=== PATIENT | male | born 1965 | race Caucasian/White ===

== ENCOUNTER 2024-03-04 11:21 | Emergency (ER) | payer BC ==
--- NOTE | 2024-03-04 12:49 | ED ---
"General Adult HPI - General Chief complaint: Extremity Injury, Upper Stated complaint: R Arm/Hand Numbess Time Seen by Provider: 03/04/24 11:33 Source: patient, family Mode of arrival: ambulatory Limitations: no limitations - History of Present Illness Initial comments: Dictation was produced using [employer] - innovate | mentor | invest dictation software. please excuse any grammatical, word or spelling errors. Chief Complaint: 58-year-old male with numbness to the right hand History of Present Illness: Patient is a 58-year-old male he suffered a fall on Monday. He was seen at outside emergency department. Patient was placed in a splint and a sling. He was told to go to the emergency department or seek immediate medical attention if he started having symptoms or else he would lose his hand. Patient states that he has a fracture in his hand and his right elbow on the same side. He was post to follow-up with orthopedic surgery in [place] however they push his appointment back several days. He is concerned that he does not come to the ER that he would lose his extremity. Patient complains of numbness tingling to his 1st-3rd digit. Denies any weakness. The ROS documented in this emergency department record has been reviewed and confirmed by me. Those systems with pertinent positive or negative responses have been documented in the HPI. All other systems are other negative and/or noncontributory. - Related Data Allergies Allergy/AdvReac Type Severity Reaction Status Date / Time No Known Allergies Allergy Verified 03/04/24 11:27 Review of Systems ROS Statement: Those systems with pertinent positive or pertinent negative responses have been documented in the HPI. ROS Other: All systems not noted in ROS Statement are negative. Past Medical History Past Medical History: Hyperlipidemia, Hypertension Additional Past Medical History / Comment(s): SLEEP APNEA Past Surgical History: Hernia Repair Smoking Status: Former smoker Past Alcohol Use History: None Reported Past Drug Use History: None Reported General Exam - General Exam Comments Initial Comments: PHYSICAL EXAM: General Impression: Alert and oriented x3, not in acute distress HEENT: Normocephalic atraumatic, extra-ocular movements intact, pupils equal and reactive to light bilaterally, mucous membranes moist. Cardiovascular: Heart regular rate and rhythm Chest: Able to complete full sentences, no retractions, no tachypnea Abdomen: abdomen soft, non-tender, non-distended, no organomegaly Musculoskeletal: Pulses present and equal in all extremities, no peripheral edema Motor: no focal deficits noted Neurological: CN II-XII grossly intact, no focal motor or sensory deficits noted Skin: Intact with no visualized rashes Psych: Normal affect and mood Right upper extremity: Intact radial pulse, finger to thumb is intact of all 5 digits. Digits have good cap refill. Compartments are soft Limitations: no limitations Course Vital Signs 03/04/24 11:23 Temperature 98.1 F Pulse Rate 73 Respiratory 20 Rate Blood Pressure 139/76 O2 Sat by Pulse 96 Oximetry - Reevaluation(s) Reevaluation #1: 03/04/24 13:57 Case discussed with Donna Capone who reviewed the films and spoke with her attending, Dr. Lucero states that patient can follow-up in the office. Did recommend to loosen up the splint. Medical Decision Making - Medical Decision Making Was pt. sent in by a medical professional or institution (, PA, GLEASON GEAR GENERATOR, urgent care, hospital, or alf...) When possible be specific @ -No Did you speak to anyone other than the patient for history (EMS, parent, family, police, friend...)? What history was obtained from this source @ -No Did you review nursing and triage notes (agree or disagree)? Why? @ -I reviewed and agree with nursing and triage notes Were old charts reviewed (outside hosp., previous admission, EMS record, old EKG, old radiological studies, urgent care reports/EKG's, alf records)? Report findings @ -Held until charting was reviewed Differential Diagnosis (chest pain, altered mental status, abdominal pain women, abdominal pain men, vaginal bleeding, musculoskeletal, weakness, fever, dyspnea, syncope, headache, dizziness, GI bleed, back pain, seizure, CVA, palpatations, mental health)? @ -Compartment syndrome, median nerve laceration, nerve compression EKG interpreted by me (3pts min.). @ -None done X-rays interpreted by me (1pt min.). @ -Elbow x-ray shows elbow fracture CT interpreted by me (1pt min.). @ -None done U/S interpreted by me (1pt. min.). @ -None done What testing was considered but not performed or refused? (CT, X-rays, U/S, labs)? Why? @ -None What meds were considered but not given or refused? Why? @ -None Was smoking cessation discussed for >3mins.? @ -No Were there social determinants of health that impacted care today? How? (Homelessness, low income, unemployed, alcoholism, drug addiction, transportation, low edu. Level, literacy, decrease access to med. care, alf, rehab)? @ -No Was there de-escalation of care discussed even if they declined (Discuss DNR or withdrawal of care, Hospice)? DNR status @ -No What co-morbidities impacted this encounter? (DM, HTN, Smoking, COPD, CAD, Cancer, CVA, ARF, Chemo, Hep., AIDS, mental health diagnosis, sleep apnea, morbid obesity)? @ -None Was patient admitted / discharged? Hospital course, mention meds given and route, prescriptions, significant lab abnormalities, going to OR and other pertinent info. @ -58-year-old male presents to the emergency department for tingling in his right hand that he had fractured on Monday after a fall. He has a proximal elbow fracture. Compartments are soft. No concern for compartment syndrome. Case discussed with Ortho who feels it is patient stable for outpatient follow- up. Did you discuss the management of the patient with other professionals (professionals i.e. , PA, GLEASON GEAR GENERATOR, lab, RT, psych nurse, social welfare clerk, cheese production supervisor, teacher, combat systems officer, disease case manager rn)? Give summary @ -See above Was critical care preformed (if so, how long)? @ -No Undiagnosed new problem with uncertain prognosis? @ -No Drug Therapy requiring intensive monitoring for toxicity (Heparin, Nitro, Insulin, Cardizem)? @ -No Were any procedures done? @ -No Diagnosis/symptom? Acute, or Chronic, or Acute on Chronic? Uncomplicated (without systemic symptoms) or Complicated (systemic symptoms)? @ -Median nerve paresthesias Side effects of treatment? @ -No Exacerbation, Progression, or Severe Exacerbation? @ -No Poses a threat to life or bodily function? How? (Chest pain, [place], MD, pneumonia, PE, COPD, DKA, ARF, appy, cholecystitis, CVA, Diverticulitis, Homicidal, Suicidal, threat to staff... and all critical care pts) @ -yes Disposition Clinical Impression: Elbow fracture Disposition: HOME SELF-CARE Condition: Fair Instructions (If sedation given, give patient instructions): Elbow Fracture (ED) Is patient prescribed a controlled substance at d/c from ED?: No Referrals: Jarret Lucero DO [Doctor of Osteopathic Medicine] - 1-2 days Time of Disposition: 14:33"
--- NOTE | 2024-03-04 14:08 | XR ---
EXAMINATION TYPE: XR elbow complete RT DATE OF EXAM: 03/04/2024 COMPARISON: Outside radiographs from 03/02/2024 HISTORY: 58-year-old male increased swelling and hand numbness, fracture 3 days ago TECHNIQUE: 3 views FINDINGS: The patient's elbow is splinted in flexion. There is a comminuted fracture of the olecranon with intr a-articular extension into the ulnar trochlear joint. 5. Fragment show similar mild displacement of 5 mL. An impacted intra-articular fracture of the later al aspect of the radial head also redemonstrated. Alignment remains grossly unchanged. IMPRESSION: Comminuted fracture of the proximal ulna with intra-articular extension into the ulnotrochlear joint. Mild displacement of a butterfly fragment by 5 mm. Impacted radial head fracture also redemonstrated . Overall alignment is unchanged from 03/02/2024.
[2024-03-04 14:56] VITALS: BP 126/72; PULSE 76; RESP 18; TEMP 97.9
== END 2024-03-04 14:59 | disposition home or self-care (01) ==
LOC: EC 11:21
DX: S52.121A Displaced fracture of head of right radius, initial encounter for closed fracture (principal); Z87.891 Personal history of nicotine dependence; X58.XXXA Exposure to other specified factors, initial encounter
CPT/HCPCS: 29105; 99283